=== PATIENT | female | born 1935 | race Caucasian/White ===

== ENCOUNTER 2018-01-03 17:11 | Emergency (ER) | payer BC, MEDICARE ==
--- NOTE | 2018-01-03 19:15 | ED Physician Documentation ---
PD HPI CHEST PAIN - Stated complaint Stated Complaint: INDIGESTION/BACK PX - Chief complaint Chief Complaint: Cardiac - History obtained from History obtained from: Patient - History of Present Illness Timing - onset: Yesterday (has had some epigastric pains since yesterday and more consistent since 9 am this morning. Not changed with antacids, movement, breathing, but some with position (lying flatter).) Timing - onset during: Rest Timing - details: Gradual onset, Still present Quality: Aching, Indigestion, Pain Location: Substernal, Epigastric Radiation: Back. No: Jaw, Neck Improved by: No: Rest Worsened by: Movement, Position. No: Exertion, Inspiration, Eating, Palpation Associated symptoms: Shortness of air. No: Nausea, Feeling faint / dizzy, General Weakness, Palpitations, Cough Similar symptoms before: Has not had sx before Recently seen: Not recently seen Review of Systems Constitutional: denies: Fever, Chills Nose: denies: Rhinorrhea / runny nose, Congestion Throat: denies: Sore throat Cardiac: reports: Chest pain / pressure. denies: Palpitations, Pedal edema, Calf pain Respiratory: denies: Dyspnea, Cough, Wheezing GI: denies: Nausea, Vomiting, Diarrhea Musculoskeletal: denies: Extremity swelling Neurologic: denies: Generalized weakness, Near syncope PD PAST MEDICAL HISTORY - Past Medical History Cardiovascular: Congestive heart failure, Atrial fibrillation Respiratory: Shortness of breath Neuro: None - Present Medications Home Medications: Ambulatory Orders Medication Instructions Recorded Confirmed Carvedilol 12.5 mg BID 01/03/18 01/03/18 Doxycycline Monohydrate 100 mg PO BID #14 tablet 01/03/18 Furosemide [Lasix] 40 mg DAILY 01/03/18 01/03/18 HYDROcod/ACETAM 5/325 [Beverly 5/325] 1 tab PO Q6H PRN #15 tablet 01/03/18 - Allergies Allergies/Adverse Reactions: Allergies Allergy/AdvReac Type Severity Reaction Status Date / Time No Known Drug Allergies Allergy Verified 01/03/18 17:24 - Social History Does the pt smoke?: No Smoking Status: Never smoker PD ED PE NORMAL - Vitals Vital signs reviewed: Yes - General General: Alert and oriented X 3, No acute distress, Well developed/nourished - HEENT HEENT: Pharynx benign - Neck Neck: Supple, no meningeal sign, No adenopathy - Cardiac Cardiac: RRR, No murmur - Respiratory Respiratory: Clear bilaterally - Abdomen Abdomen: Soft, Non tender - Derm Derm: Normal color, Warm and dry - Extremities Extremities: No deformity, No tenderness to palpate, Normal ROM s pain, No edema , No calf tenderness / cord - Neuro Neuro: Alert and oriented X 3, No motor deficit, Normal speech - Psych Psych: Normal mood, Normal affect Results - Vitals Vitals: Oxygen O2 Source Nasal cannula Oxygen Flow Rate 2 - EKG (time done) 17:33 Rate: Rate (enter#) (101) Rhythm: Atrial fibrillation [place]: Normal QRS: Normal Ischemia: Normal ST segments, Non specific changes (t flattening laterally). No : ST elevation c/w ischemia, ST depression Compare to prior EKG: Old EKG unavailable - Labs Labs: Laboratory Tests 01/03/18 01/03/18 01/03/18 19:08 19:08 19:08 WBC 13.6 H RBC 4.78 Hgb 13.8 Hct 42.0 MCV 88.0 MCH 28.9 MCHC 32.8 RDW 14.2 Plt Count 272 MPV 7.5 L Neut # (Auto) 8.9 H Lymph # (Auto) 3.1 [place] # (Auto) 1.4 H Eos # (Auto) 0.1 Baso # (Auto) 0.2 H Absolute Nucleated RBC 0.01 Nucleated RBC % 0.0 D-Dimer Sodium 140 Potassium 3.1 L Chloride 102 Carbon Dioxide 30 Anion Gap 8.0 BUN 12 Creatinine 0.9 Estimated GFR (MDRD) 60 L Glucose 123 H Calcium 8.8 Magnesium Total Bilirubin 0.8 AST 13 ALT 10 Alkaline Phosphatase 59 Troponin I < 0.04 B-Natriuretic Peptide Total Protein 6.9 Albumin 3.5 Globulin 3.4 Albumin/Globulin Ratio 1.0 Lipase 22 01/03/1818 01/03/18 19:08 19:08 19:08 WBC RBC Hgb Hct MCV MCH MCHC RDW Plt Count MPV Neut # (Auto) Lymph # (Auto) [place] # (Auto) Eos # (Auto) Baso # (Auto) Absolute Nucleated RBC Nucleated RBC % D-Dimer 238.6 Sodium Potassium Chloride Carbon Dioxide Anion Gap BUN Creatinine Estimated GFR (MDRD) Glucose Calcium Magnesium 2.1 Total Bilirubin AST ALT Alkaline Phosphatase Troponin I B-Natriuretic Peptide 130 H Total Protein Albumin Globulin Albumin/Globulin Ratio Lipase - Rads (name of study) chest Radiology: Prelim report reviewed (small patch, scar or infiltrate left lower sulcus. ), EMP read contemporaneously PD MEDICAL DECISION MAKING - ED course Complexity details: reviewed results (does not appear cardiac, PE, nor CHF. Small patch lower left, and patient says she has had patch on prior chest xrays that has had CT and MRIs of. This might be same. She does not have URI symptoms. Not pancreatic nor gallbladder. Does not seem ulcer as no change with eating nor GI cocktail. ), re-evaluated patient (better with pain meds. Feeling much improved. Not changed with GI cocktail directly. ), considered differential Departure - Departure Disposition: 01 Home, Self Care Clinical Impression: Chest pain at rest Condition: Stable Record reviewed to determine appropriate education?: Yes Instructions: ED Chest Pain Atypical Unkn Cause Prescriptions: Doxycycline Monohydrate 100 mg PO BID #14 tablet HYDROcod/ACETAM 5/325 [[place] 5/325] 1 tab PO Q6H PRN #15 tablet PRN Reason: Pain Comments: There are no signs of heart failure or heart attack nor blood clots based on your blood tests. The chest x-ray appeared normal except for mild patchy spot in the left lower. That might be the spot that has been evaluated on previous tests for you. It not look convincingly like a pneumonia. Especially since you have not had a cough fever etc. However if you were to have fever cough or trouble breathing, then start doxycycline antibiotic. Otherwise at this point will say I do not know the exact cause of your pain. It did not seem to improve with stomach medicines so it does not sound gastritis or ulcer. Recheck with your primary care if not improved over the next few days. Discharge Date/Time: 01/03/18 20:46
[2018-01-03 19:22] LABS: BASOPHILS # (AUTO) 0.2 10^3/uL (0.0-0.1); BASOPHILS % (AUTO) 1.2 %; EOSINOPHILS # (AUTO) 0.1 10^3/uL (0.0-0.7); EOSINOPHILS % (AUTO) 1.1 %; HGB - HEMOGLOBIN 13.8 g/dL (12.0-16.0); LYMPHOCYTES # (AUTO) 3.1 10^3/uL (1.5-3.5); LYMPHOCYTES % (AUTO) 22.8 %; MEAN CORPUSCULAR HEMOGLOBIN 28.9 pg (27.0-31.0); MEAN CORPUSCULAR HGB CONC 32.8 g/dL (32.0-36.0); MEAN PLATELET VOLUME 7.5 fL (7.9-10.8); MONOCYTES # (AUTO) 1.4 10^3/uL (0.0-1.0); NEUTROPHILS # (AUTO) 8.9 10^3/uL (1.5-6.6); NEUTROPHILS % (AUTO) 64.9 %; PLT - PLATELET COUNT 272 10^3/uL (130-450); RED BLOOD COUNT 4.78 10^6/uL (4.20-5.40); RED CELL DISTRIBUTION WIDTH 14.2 % (12.0-15.0); WHITE BLOOD COUNT 13.6 x10^3/uL (4.8-10.8)
[2018-01-03 19:35] LABS: ALBUMIN 3.5 g/dL (3.2-5.5); BILIRUBIN,TOTAL 0.8 mg/dL (0.2-1.0); CALCIUM 8.8 mg/dL (8.5-10.3); CREATININE 0.9 mg/dL (0.4-1.0); TOTAL PROTEIN 6.9 g/dL (6.7-8.2)
[2018-01-03] MEDS ORDERED: ONDANSETRON 4 MG/2 ML VIAL IVP STA (19:35)
[2018-01-03] MEDS ORDERED: MORPHINE 10 MG/ML VIAL IVP STA (19:35)
[2018-01-03] MEDS ORDERED: LIDOCAINE VISCOUS 2% 15 ML UDC MM STA (19:35)
[2018-01-03] MEDS ORDERED: MAG HYDROX/AL HYDROX/SIMETH 30 ML UDC PO STA (19:35)
--- NOTE | 2018-01-03 19:55 | XRAY Report ---
EXAM: CHEST RADIOGRAPHY EXAM DATE: 01/03/2018 07:48 PM. CLINICAL HISTORY: Chest pain. COMPARISON: None. TECHNIQUE: 2 views. FINDINGS: Lungs/Pleura: Mild opacity seen about the left base suggestive of atelectasis, less likely infiltrate . Right lung is clear. Mediastinum: Heart and mediastinal contours are unremarkable. Other: None. IMPRESSION: Opacity about the left base suggestive of atelectasis, less likely infiltrate. [facility] Referring Provider Line: [phone] SITE ID: [id number]
[2018-01-03] MEDS ORDERED: MAG HYDROX/AL HYDROX/SIMETH 30 ML UDC ONE (20:00)
[2018-01-03] MEDS ORDERED: DEXAMETHASONE 10 MG/ML VIAL IVP STA (20:23)
[2018-01-03] MEDS ORDERED: HYDROcod/ACET 5/325 Prepack 4 PO STA (20:23)
[2018-01-03 20:40] VITALS: BP 124/71
[2018-01-03] MEDS ORDERED: CHERRY SYRUP 10 ML UDC PO ONE (20:41)
== END 2018-01-03 20:46 | disposition home or self-care (01) ==
LOC: ED 17:11
DX: R07.89 Other chest pain (principal); I50.9 Heart failure, unspecified; I48.91 Unspecified atrial fibrillation
CPT/HCPCS: 36415; 71046; 80053; 83690; 83735; 83880; 84484; 85025; 85379; 93005; 96374; 96375; 99283; 99284; A9270